=== PATIENT | male | born 1970 | race Two or more races ===

== ENCOUNTER 2018-01-04 12:25 | Emergency (ER) | payer OTHER, BC ==
[2018-01-04 12:52] VITALS: BP 127/76; PULSE 77; TEMP 98.6; BMI 42.5
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
== END 2018-01-04 13:23 | disposition home or self-care (01) ==
LOC: JERFT 12:25
DX: S39.012A Strain of muscle, fascia and tendon of lower back, initial encounter (principal); V43.52XA Car driver injured in collision with other type car in traffic accident, initial encounter; Y92.488 Other paved roadways as the place of occurrence of the external cause; Y93.89 Activity, other specified; Y99.8 Other external cause status
CPT/HCPCS: 99281-25

== ENCOUNTER 2019-02-23 16:13 | Emergency (ER) | payer OTHER ==
[2019-02-23 16:18] VITALS: BP 126/93; PULSE 77; TEMP 98; BMI 43.3
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
[2019-02-23] MEDS ORDERED: DIPHTH,PERTUSS(ACELL),TET 0.5 ML DISP.SYRIN IM ONE ×2 (16:40→16:54)
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
[2019-02-23 18:21] LABS: BASO % 0.6 % (0-2.0); HEMATOCRIT 45.7 % (35.4-49); HEMOGLOBIN 15.3 GM/dL (11.7-16.9); LYMPH % 36.1 % (8-40); MCH 27.4 pg (25.7-33.7); MCHC 33.4 g/dl (32.0-35.9); MEAN PLT VOLUME 9.9 fl (7.5-11.1); NEUT % 55.3 % (42.8-82.8); PLATELET COUNT 233 K/MM3 (134-434); RBC 5.58 M/mm3 (4.00-5.60); RDW 13.4 % (11.9-15.9); WHITE BLOOD COUNT 7.5 K/mm3 (4.0-10.0)
[2019-02-23 18:54] LABS: ALBUMIN 4.2 g/dl (3.4-5.0); BILIRUBIN,TOTAL 0.4 mg/dL (0.2-1); BLOOD UREA NITROGEN 15.6 mg/dL (7-18); CALCIUM 9.7 mg/dL (8.5-10.1); CREATININE 0.7 mg/dL (0.55-1.3); POTASSIUM 4.1 mmol/L (3.5-5.1); TOT PROT 7.8 g/dl (6.4-8.2)
== END 2019-02-23 18:06 | disposition home or self-care (01) ==
LOC: JERFT 16:13
PROC: 3E0234Z Introduction of Serum, Toxoid and Vaccine into Muscle, Percutaneous Approach (ICD-10-PCS; principal; 2019-02-23)
DX: S00.412A Abrasion of left ear, initial encounter (principal); Y04.1XXA Assault by human bite, initial encounter; Y93.89 Activity, other specified; Y92.238 Other place in hospital as the place of occurrence of the external cause; Y99.0 Civilian activity done for income or pay
CPT/HCPCS: 36415; 80053; 85025; 86704; 86706; 87340; 87389; 90715; 99282-25

== ENCOUNTER 2020-12-17 05:54 | Day surgery (SDC) | payer BC ==
[2020-12-11 12:22] VITALS: BMI 41.8
[2020-12-17] MEDS ORDERED: BUPIVACAINE HCL 150 ML ONE (07:11)
[2020-12-17] MEDS ORDERED: LIDOCAINE 1%/EPI 1:100000 (20 ML MULTI DOSE VIAL) ONE ×2 (07:11→07:26)
[2020-12-17] MEDS ORDERED: MIDAZOLAM HCL 2 MG/2 ML SINGLE DOSE VIAL ONE (07:17)
[2020-12-17] MEDS ORDERED: PROPOFOL 20 ML ONE ×3 (07:17)
[2020-12-17] MEDS ORDERED: SUCCINYLCHOLINE CHLORIDE 200 MG/10 ML SYRINGE ONE (07:17)
[2020-12-17] MEDS ORDERED: DEXAMETHASONE SOD PHOSPHATE 4 MG/1 ML VIAL ONE (07:18)
[2020-12-17] MEDS ORDERED: KETOROLAC TROMETHAMINE 30 MG/1 ML VIAL ONE (07:18)
[2020-12-17] MEDS ORDERED: ceFAZolin SODIUM 1 GM VIAL ONE (07:18)
[2020-12-17] MEDS ORDERED: ONDANSETRON 4 MG/2 ML VIAL ONE (07:18)
[2020-12-17] MEDS ORDERED: LIDOCAINE HCL 2% JELLY (5 ML/TUBE) ONE (07:18)
[2020-12-17] MEDS ORDERED: LIDOCAINE HCL/PF 2% SDV 5ML VIAL ONE (07:18)
[2020-12-17] MEDS ORDERED: BUPIVACAINE HCL 50 ML ONE (07:26)
[2020-12-17] MEDS ORDERED: oxyCODONE HCL 5 MG TABLET PO PRN ×2 (09:03)
[2020-12-17] MEDS ORDERED: ONDANSETRON 4 MG/2 ML VIAL IVPUSH PRN (09:03)
[2020-12-17] MEDS ORDERED: PROMETHAZINE HCL 25 MG/1 ML VIAL IVPB PRN (09:03)
[2020-12-17] MEDS ORDERED: oxyCODONE HCL 5 MG TABLET ONE (09:51)
[2020-12-17 11:48] VITALS: BP 130/78; PULSE 54; TEMP 97
== END 2020-12-17 11:48 | disposition home or self-care (01) ==
LOC: FASU 05:54
PROVIDERS: ATTEND Orthopaedic Surgery
PROC: 0SBD4ZZ Excision of Left Knee Joint, Percutaneous Endoscopic Approach (ICD-10-PCS; 2020-12-17)
PROC: 0SBD4ZZ Excision of Left Knee Joint, Percutaneous Endoscopic Approach (ICD-10-PCS; 2020-12-17)
PROC: 0MQ Bursae and Ligaments, Repair (ICD-10-PCS; 2020-12-17)
PROC: 0SBD4ZZ Excision of Left Knee Joint, Percutaneous Endoscopic Approach (ICD-10-PCS; principal; 2020-12-17 08:31)
DX: S83.242A Other tear of medial meniscus, current injury, left knee, initial encounter (principal); S83.282A Other tear of lateral meniscus, current injury, left knee, initial encounter; M24.10 Other articular cartilage disorders, unspecified site; S83.512A Sprain of anterior cruciate ligament of left knee, initial encounter; X58.XXXA Exposure to other specified factors, initial encounter; Y93.9 Activity, unspecified; Y92.9 Unspecified place or not applicable
CPT/HCPCS: 29880; 29999; G0289; 94760